=== PATIENT | female | born 2000 | race Caucasian/White ===

== ENCOUNTER 2020-08-09 21:33 | Emergency (ER) | payer OTHER ==
--- NOTE | 2020-08-09 22:54 | ER Document Report ---
ED Medical Screen (RME) - General Chief Complaint: Vaginal Bleeding Stated Complaint: VAGINAL BLEEDING Time Seen by Provider: 08/09/20 22:46 - HPI Notes: Patient is a 20 y/o female who presents with heavy vaginal bleeding for the past four days. She reports soaking through about 3 large pads a day. Her LMP was 1.5 weeks ago which ended and she started bleeding again a few days ago. She states she took a Plan B pill one week ago after having unprotected intercourse. She reports mild abdominal cramping and white milky vaginal discharge but she denies vomiting and diarrhea. , P:0, A:1. - Related Data Allergies/Adverse Reactions: No Known Allergies Allergy (Verified 08/09/20 22:46) Past Medical History - Social History Chew tobacco use (# tins/day): No Frequency of alcohol use: None Drug Abuse: None Physical Exam - Vital signs Vitals: Temp Pulse Resp BP Pulse Ox 98.3 F 68 15 135/78 H 99 08/09/20 21:45 08/09/20 21:45 08/09/20 21:45 08/09/20 21:45 08/09/20 21:45 - Respiratory Respiratory status: No respiratory distress - Abdominal Distension: No distension Tenderness: Nontender Course - Re-evaluation Re-evalutation: I have greeted and performed a rapid initial assessment of this patient. A comprehensive ED assessment and evaluation of the patient, analysis of test results and completion of medical decision making process will be conducted by an additional ED providers. - Vital Signs Vital signs: Temp Pulse Resp BP Pulse Ox 98.3 F 68 15 135/78 H 99 08/09/20 21:45 08/09/20 21:45 08/09/20 21:45 08/09/20 21:45 08/09/20 21:45
--- NOTE | 2020-08-10 00:43 | ER Document Report ---
ED General - General Chief Complaint: Vaginal Bleeding Stated Complaint: VAGINAL BLEEDING Time Seen by Provider: 08/09/20 22:46 Primary Care Provider: LUÍS WILD [Primary Care Provider] - Follow up as needed - HPI Context: Time: 0 230 Chief Complaint: [Vaginal bleeding] [This is a 20-year-old female, aborta 1, presenting complaining of heavy vaginal bleeding x4 days. Patient states she a Plan B pill 1 week ago from [employer] after having unprotected intercourse. Patient states she is going through 3 large feminine pads a day. And she is noticed mild abdominal cramping. Patient denies seeing any products of conception. ] History obtained from [patient] Symptoms began:[4 days ago] Onset: [Gradual] Timing: [Gradual] Quality: [Moderate] Intensity: [4] Location: [Vaginal] Radiation: [Denies] [The pain does not migrate to a new location.] Aggravating factors: Recently took Plan B pill Relieving factors: [none] [Denies] SOB [Denies] nausea [Denies] vomiting [Denies] sweats [Denies] fever [Denies] cough [Denies] calf or leg swelling or pain - Related Data Allergies/Adverse Reactions: No Known Allergies Allergy (Verified 08/09/20 22:46) Past Medical History - General Information source: Patient Last Menstrual Period: 07/18/2020 - Social History Smoking Status: Never Smoker Chew tobacco use (# tins/day): No Frequency of alcohol use: None Drug Abuse: None Family History: Reviewed & Not Pertinent Review of Systems - Review of Systems Notes: Review of systems as below unless otherwise stated in HPI. CONSTITUTIONAL [No] fever, [No] chills. EYES [No] eye pain. ENT [No] URI symptoms, [No] sore throat, [No] ear pain. CARDIOVASCULAR [No] chest pain, [No] palpitations, [No] edema. RESPIRATORY [No] Cough, [No] SOB, [No] wheezing. GASTROINTESTINAL [No] abdominal pain, [No] nausea, [No] Diarrhea, [No] Vomiting, [No] cons tipation, [No] melena, [No] rectal bleeding. GENITOURINARY [No] dysuria, [No] urinary frequency, [No] hematuria, [No] urinary urgency, [No] vaginal discharge, positive vaginal bleeding. MUSCULOSKELETAL [No] Back pain. SKIN [No] Rash. NEUROLOGIC [No] Headache, [No] recent seizures, [No] paralysis,[No] parathesias. ENDOCRINE [No] polyuria. HEMO/LYMPATIC [No] easy brusing PSYCHIATRIC [No] depression. Physical Exam - Vital signs Vitals: Temp Pulse Resp BP Pulse Ox 98.3 F 68 15 135/78 H 99 08/09/20 21:45 08/09/20 21:45 08/09/20 21:45 08/09/20 21:45 08/09/20 21:45 - Notes Notes: CONSTITUTIONAL [Vital signs reviewed, Patient appears comfortable, Alert and oriented X 3, Normal stature.] HEAD [Atraumatic, Normocephalic.] EYES [Eyes are normal to inspection, No discharge from eyes, Extraocular muscles intact, Sclera are normal, Conjunctiva are normal.] ENT [External ears normal to inspection, Nose examination normal, Mouth normal to inspection.] NECK [Normal ROM, No jugular venous distention, No meningeal signs, ] RESPIRATORY CHEST [Chest is nontender, Breath sounds normal, No respiratory distress.] CARDIOVASCULAR [RRR, No murmurs, Normal S1 S2, No rub, No gallop.] ABDOMEN [Abdomen is nontender, No pulsatile masses, No other masses, Bowel sounds normal, No distension, No peritoneal signs, No hernias.] FEMALE Normal external genitalia. There is a small amount of dark blood in the vaginal vault. Cervix is easily visualized with speculum. Cervical os is closed and ring forceps cannot be passed through the os. No products of conception are seen within the vaginal vault BACK [There is no CVA Tenderness, There is no tenderness to palpation, Normal inspection.] UPPER EXTREMITY [Inspection normal, No cyanosis, No clubbing, No edema, LOWER EXTREMITY [Inspection normal, No cyanosis, No clubbing, No edema, No calf tenderness, NEURO [No focal motor deficits, No focal sensory deficits, Speech normal.] SKIN [Skin is warm, Skin is dry, Skin is normal color.] PSYCHIATRIC [Normal affect. ] Course - Re-evaluation Re-evalutation: 08/10/20 03:00 Results of ED MSE discussed with patient and patient's significant other. All questions were answered prior to discharge. Emergency signs and symptoms, reasons to return to the emergency department discussed with patient and patient's significant other. - Vital Signs Vital signs: Temp Pulse Resp BP Pulse Ox 97.9 F 77 16 123/72 100 08/10/20 01:58 08/10/20 01:58 08/10/20 01:58 08/10/20 01:58 08/10/20 01:58 - Laboratory Results Result Diagrams: 08/10/20 00:45 08/10/20 00:45 Laboratory Results Interpreted: 08/10/20 08/10/20 00:45 01:45 WBC 11.2 H Urine Blood MODERATE H Critical Laboratory Results Reviewed: No Critical Results Attending or Supervising Physician who Reviewed Labs: LUCHO FREDERICK IV - Radiology Results Critical Radiology Results Reviewed: Yes Attending or Supervising Physician who Reviewed Radiology: LUCHO FREDERICK IV - 6-week, 4-day intrauterine gestational sac with yolk sac and no visible heart activity noted - Consults Dr. Howe Time consulted: 02:37 - Dr. Moreno stated that within the next few days the patient should start passing products of conception. Dr. Howe was informed patient is a be positive. Dr. Howe stated that the patient could contact her office on Tuesday for a repeat ultrasound and repeat quant. Reason for consultation: 08/10/20 03:03 Patient status post self-administered Plan B with vaginal bleeding and closed os Discharge - Discharge Clinical Impression: Incomplete Condition: Stable Disposition: HOME, SELF-CARE Additional Instructions: Return to the Emergency Department without delay if any worse. HOME CARE INSTRUCTIONS & INFORMATION: Thank you for choosing us for your medical needs. We hope you're satisfied with the care you received. After you leave, you must properly care for your problem and, at the same time, observe its progress. Any condition can change. Some illnesses can change rapidly over hours or days. If your condition worsens, return to the Emergency Department or see your physician promptly. ABOUT YOUR X-RAYS AND EKG'S: If you had an EKG or X-rays taken, they have been read by the Emergency Physician. The X-rays and EKG's will also be read by a Radiologist or Coiled Tubing Supervisor within 24 hours. If discrepancies are noted, you will be notified by telephone. Please be certain the ED has a correct telephone number & address where you can be reached. Also, realize that some fractures or abnormalities do not show up on initial X-rays. If your symptoms continue, see your physician. ABOUT YOUR LABORATORY TEST: If you had laboratory tests, the results have been reviewed by the Emergency Physician. Some test results (for example cultures) may not be available for several days. You will be contacted if any test result shows you need additional treatment. Please be certain the ED has a correct t elephone number and address where you can be reached. ABOUT YOUR MEDICATIONS: You will receive instructions on how to take your medicine on the prescription label you receive. Additional information may be provided by the Pharmacy. If you have questions afterwards, call the ED for clarification or further instructions. Some prescribed medications may cause drowsiness. Do not perform tasks such as driving a car or operating machinery without consulting your Pharmacist. If you feel you need a refill of pain medication, your condition will need re-evaluation. Please do not call for a refill of any medication. ABOUT YOUR SIGNATURE: Signature of this document acknowledges to followin. Understanding that you received emergency treatment and that you may be released before al medical problems are known or treated. Please be certain the ED has a correct phone number & address where you can be reached. 2. Acknowledgement that you will arrange for follow-up care as recommended. 3. Authorization for the Emergency Physician to provide information to your follow-up Physician in order to maximize your care. AT ANY TIME, IF YOUR SYMPTOMS CHANGE SIGNIFICANTLY OR WORSEN OR YOU DEVELOP NEW SYMPTOMS, RETURN TO THE EMERGENCY DEPARTMENT IMMEDIATELY FOR RE-EVALUATION. OUR GOAL IS TO PROVIDE EXCELLENT MEDICAL CARE! WE HOPE THAT WE HAVE MET YOUR EXPECTATIONS DURING YOUR EMERGENCY DEPARTMENT VISIT AND THAT YOU FEEL YOU HAVE RECEIVED EXCELLENT CARE! Referrals: MICHELL HOWE MD [ACTIVE PROVISIONAL STAFF] - 08/11/20 (Call Dr. Howe's office on 08/11/2020 to schedule a follow-up appointment.)
--- NOTE | 2020-08-10 01:03 | RADIOLOGY REPORT (SQ) ---
EXAM: Ultrasound OB level one < than 14 weeks CLINICAL DATA: 20 years Female vaginal bleeding, LMP: 07/26/2020, EGA: 3 weeks, COTY: 04/24/2021 TECHNICAL DATA: Sonographic imaging of the pelvis was performed transvaginally on 08/09/2020 at 11:43 PM COMPARISONS: None FINDINGS: The uterus is normal in size and configuration and measures: 7.1 x 4.2 x 4.9 cm. The cervix measures approximately 2 cm in length. There is a crescentic fluid collection within the endometrial canal which appears to contain a yolk sac and a pole. The average size of the gestational sac measures approximately 2.1 cm corresponding to a 7 week, 0 day . The crown-rump length measures approximately 0.4 cm corresponding to a 6 week one day . No heart tones are identified at this time. There is a large septated cyst arising from the right ovary measuring approximately 3.7 x 3.7 x 4.1 cm. The overall size of the right ovary measures approximately 4.7 x 3.8 x 4.7 cm. There is normal pulsed and color Doppler flow to the right ovary. The left ovary is grossly normal in size, shape and echogenicity and measures: 2.4 x 2.2 x 2.4 cm. There is normal pulsed and color Doppler flow to the left ovary. There are no left adnexal mass lesions.. There is no free fluid in the pelvis. IMPRESSION: 1. Crescentic shaped gestational sac which contains a yolk sac and pole corresponding to an ultrasound age of 6 weeks 4 days and an estimated due date of 04/20/2021. No heart tones are identified at this time. Findings may reflect intrauterine demise or early . 2. Large septated cyst arising from the right ovary with maximum dimension of 4.1 cm. 3. Grossly normal sonographic evaluation of the left ovary.
[2020-08-10 01:08] LABS: ABSOLUTE EOSINOPHILS # (AUTO) 0.5 10^3/uL (0.0-0.6); ABSOLUTE LYMPHOCYTES (AUTO) 2.4 10^3/uL (0.5-4.7); ABSOLUTE MONOCYTES (AUTO) 0.8 10^3/uL (0.1-1.4); ABSOLUTE NEUT (AUTO) 7.4 10^3/uL (1.7-8.2); BASOPHILS % (AUTO) 0.3 % (0-2); EOSINOPHILS % (AUTO) 4.5 % (0-6); HEMATOCRIT 36.7 % (36.0-47.0); HEMOGLOBIN 12.2 g/dL (12.0-15.5); LYMPHOCYTES % (AUTO) 21.5 % (13-45); MEAN CORPUSCULAR HEMOGLOBIN 30.4 pg (27.0-33.4); MEAN CORPUSCULAR HGB CONC 33.3 g/dL (32.0-36.0); MEAN CORPUSCULAR VOLUME 91 fl (80-97); PLATELET COUNT 346 10^3/uL (150-450); RED BLOOD COUNT 4.02 10^6/uL (3.72-5.28); RED CELL DISTRIBUTION WIDTH 12.5 % (11.5-14.0); SEGMENTED NEUTROPHILS % (AUTO) 66.7 % (42-78); TOTAL CELLS COUNTED % (AUTO) 100 %; WHITE BLOOD COUNT 11.2 10^3/uL (4.0-10.5)
[2020-08-10 01:32] LABS: ALBUMIN 4.3 g/dL (3.5-5.0); ALKALINE PHOSPHATASE 63 U/L (38-126); ANION GAP 10 (5-19); ASPARTATE AMINO TRANSFERASE 23 U/L (14-36); BILIRUBIN,DIRECT 0.2 mg/dL (0.0-0.4); BILIRUBIN,TOTAL 0.5 mg/dL (0.2-1.3); BLOOD UREA NITROGEN 8 mg/dL (7-20); CALCIUM 9.3 mg/dL (8.4-10.2); CARBON DIOXIDE 25 mmol/L (22-30); CHLORIDE 105 mmol/L (98-107); GLUCOSE 95 mg/dL (75-110); POTASSIUM 4.2 mmol/L (3.6-5.0); TOTAL PROTEIN 7.4 g/dL (6.3-8.2)
[2020-08-10 02:01] VITALS: BP 123/72
[2020-08-10 02:39] LABS: APPEARANCE,URINE CLEAR; BILIRUBIN,URINE NEGATIVE (NEGATIVE); COLOR,URINE STRAW; GLUCOSE, URINE NEGATIVE (NEGATIVE); KETONES,URINE NEGATIVE (NEGATIVE); LEUKOCYTE ESTERASE,URINE NEGATIVE (NEGATIVE); NITRITE,URINE NEGATIVE (NEGATIVE); PROTEIN,URINE NEGATIVE (NEGATIVE); URINE SPECIFIC GRAVITY 1.004; UROBILINOGEN,URINE NEGATIVE mg/dL (<2.0)
== END 2020-08-10 03:30 | disposition home or self-care (01) ==
LOC: ER 21:33
DX: O03.4 Incomplete spontaneous abortion without complication (principal); N93.9 Abnormal uterine and vaginal bleeding, unspecified; R10.9 Unspecified abdominal pain
CPT/HCPCS: 36415; 76817; 80053; 81001; 84443; 84702; 84703; 85025; 86900; 86901; 93976; 99284